=== PATIENT | female | born 1940 | race Caucasian/White ===

== ENCOUNTER 2018-02-03 08:43 | Day surgery (SDC) | payer OTHER ==
[~2018-02-03] VITALS: Ht 152.4 cm; Wt 95.3 kg
[~2018-02-03 08:43] MED LIST: CENTRUM SILVER1 EAC4 PO; COUMADIN2.5 MG PO; COUMADIN3 MG PO; HEARTBURN RELI150 M1 PO; SUPER B COMPL400 MCG PO; SYNTHROID25 MCG PO; ZESTORETIC 20-1 EAC2 PO
[2018-02-03] MEDS ORDERED: LIPITOR10 MG PO (11:27)
[2018-02-03 11:36] LABS: BASOPHIL (%) 0.7 % (0-1); BASOPHIL COUNT 0.1 K/uL (0-0.1); EOSINOPHIL (%) 0.9 % (0-5); EOSINOPHIL COUNT 0.1 K/uL (0-0.3); HEMATOCRIT 40.9 % (36.0-46.0); IMMATURE GRANULOCYTE (%) 0.4 % (0.0-0.7); LYMPHOCYTE (%) 27.7 % (15-42); LYMPHOCYTE COUNT 2.2 K/uL (1.0-2.8); MCH 32.4 PG (29.0-34.0); MCHC 34.2 G/DL (30.0-36.0); MCV 94.7 FL (83-99); MONOCYTE COUNT 0.7 K/uL (0-0.8); NEUTROPHIL (%) 61.3 % (45-76); PLATELET COUNT 166 K/uL (156-360); RBC DIS.WIDTH-CV 14.4 % (11.8-14.6); RBC DIS.WIDTH-SD 48.5 % (39-53); RED BLOOD COUNT 4.32 M/uL (3.80-5.20); WHITE BLOOD COUNT 8.1 K/uL (4.1-10.2)
[2018-02-03 12:00] VITALS: BP 164/77
[2018-02-03 12:36] LABS: INTER. NORMALIZED RATIO 1.1
[2018-02-03 12:38] LABS: CHLORIDE 108 mEq/L (99-109); POTASSIUM 4.5 mEq/L (3.7-5.4); SODIUM 139 mEq/L (136-147)
[2018-02-03 12:40] LABS: GLUCOSE 130 mg/dL (70-99)
[2018-02-03 12:44] LABS: CREATININE 1.6 mg/dL (0.6-1.3); GFR ESTIMATE (CALCULATED) 33 mL/min/; UREA NITROGEN (BUN) 35 mg/dL (9-23)
[2018-02-03 13:53] VITALS: BP 162/80
[2018-02-03 14:38] VITALS: BP 153/70
== END 2018-02-03 14:50 | disposition home or self-care (01) ==
LOC: SDC 08:43
PROVIDERS: Ophthalmology
DX: H44.19 Other endophthalmitis (principal); H43.392 Other vitreous opacities, left eye; H35.372 Puckering of macula, left eye; H35.81 Retinal edema; I10 Essential (primary) hypertension; E78.5 Hyperlipidemia, unspecified; I25.10 Atherosclerotic heart disease of native coronary artery without angina pectoris; K21.9 Gastro-esophageal reflux disease without esophagitis; Z79.01 Long term (current) use of anticoagulants; E03.9 Hypothyroidism, unspecified; E11.9 Type 2 diabetes mellitus without complications; Z95.828 Presence of other vascular implants and grafts; Z86.711 Personal history of pulmonary embolism; Z82.49 Family history of ischemic heart disease and other diseases of the circulatory system; Z82.3 Family history of stroke
CPT/HCPCS: 80048; 82948; 85025; 85610; 85730; J0690; J0713; J1100; J3300